=== PATIENT | male | born 1960 | race Caucasian/White ===

== ENCOUNTER 2017-04-14 15:03 | Inpatient (IN) | payer SELFPAY ==
[~2017-04-14] VITALS: Ht 182.9 cm; Wt 96.6 kg
[2017-04-14 16:00] LABS: BASOPHILS # (AUTO) 0.1 (0.0-0.1); BASOPHILS % 0.8 % (0.0-1.0); EOSINOPHILS # (AUTO) 0.1 (0.0-0.4); EOSINOPHILS % 1.5 % (0.0-6.0); HEMATOCRIT 40.6 % (38.2-49.6); LYMPHOCYTES # (AUTO) 1.5 (1.0-3.2); MEAN CORPUSCULAR HEMOGLOBIN 30.8 pg (28-32); MEAN CORPUSCULAR HGB CONC 34.5 g/dL (31-35); MEAN CORPUSCULAR VOLUME 89.2 fL (81-99); MONOCYTES # (AUTO) 0.8 (0.2-0.8); MONOCYTES % 10.9 % (4.4-11.3); NEUTROPHILS # (AUTO) 4.7 (2.1-6.9); NEUTROPHILS % 65.4 % (38.7-80.0); PLATELET COUNT 115 x10e3/uL (140-360); RED BLOOD COUNT 4.55 x10e6/uL (4.3-5.7); RED CELL DISTRIBUTION WIDTH 13.1 % (11.7-14.4)
[2017-04-14 16:10] LABS: INR 1.43; PROTHROMBIN TIME 16.4 seconds (11.9-14.5)
[2017-04-14 16:11] LABS: PARTIAL THROMBOPLASTIN TIME 29.9 seconds (23.8-35.5)
[2017-04-14 16:18] LABS: ALANINE AMINOTRANSFERASE 43 IU/L (0-55); ALBUMIN 3.3 g/dL (3.5-5.0); ALBUMIN/GLOBULIN RATIO 1.4 (0.8-2.0); ALKALINE PHOSPHATASE 58 IU/L (40-150); ANION GAP 10.8 mmol/L (8-16); BLOOD UREA NITROGEN 17 mg/dL (7-26); BUN/CREATININE RATIO 15 (6-25); CALCIUM 8.2 mg/dL (8.4-10.2); CARBON DIOXIDE 20 mmol/L (22-29); CHLORIDE 110 mmol/L (98-107); CREATINE KINASE 45 IU/L (30-200); CREATININE, SERUM 1.12 mg/dL (0.72-1.25); EST GLOMERULAR FILTRATION RATE > 60 ML/MIN (60-); GLUCOSE 136 mg/dL (74-118); POTASSIUM 3.8 mmol/L (3.5-5.1); SODIUM 137 mmol/L (136-145)
--- NOTE | 2017-04-14 17:45 | Diagnostic Imaging Report ---
EXAMINATION: CHEST SINGLE (PORTABLE) INDICATION: Shortness of breath. COMPARISON: None FINDINGS: TUBES and LINES: None. LUNGS: Mild prominence of the pulmonary vasculature bilaterally. There is no evidence of pneumonia or pulmonary edema. PLEURA: No pleural effusion or pneumothorax. HEART AND MEDIASTINUM: Cardiac silhouette is moderately enlarged. BONES AND SOFT TISSUES: No acute osseous lesion. Soft tissues are unremarkable. UPPER ABDOMEN: No free air under the diaphragm. IMPRESSION: Mild bilateral pulmonary venous congestion. Signed by: Dr. Yue Canales M.D. on 04/14/2017 5:41 PM
[2017-04-14] MEDS ORDERED: FUROSEMIDE INJ 10 MG/ML 4 ML VIAL IV ONE (18:00)
[2017-04-14] MEDS ORDERED: FUROSEMIDE INJ 10 MG/ML 2 ML VIAL IV ONE (18:15)
[2017-04-14] MEDS ORDERED: METOPROLOL TART25 MG PO (18:56)
[2017-04-14] MEDS ORDERED: LOVASTATIN40 MG PO (18:56)
[2017-04-14] MEDS ORDERED: ELIQUIS PO (18:56)
[2017-04-14] MEDS ORDERED: CENTRUM SILVER1 EAC3 PO (18:56)
[2017-04-14] MEDS ORDERED: DIGOXIN INJ 0.25 MG/ML 2 ML AMP IV ONE (19:15)
[2017-04-14 21:58] VITALS: BP 106/92
[2017-04-14 22:00] VITALS: BP 106/92
[2017-04-14] MEDS ORDERED: INFLUENZA VIRUS VAC SPLIT INJ 0.5 ML SYR IM PRN (23:00)
[2017-04-14] MEDS ORDERED: ASPIR 8181 MG PO (23:11)
[2017-04-14 23:36] VITALS: BP 102/80
[2017-04-15 02:45] LABS: CREATINE KINASE MB 1.3 ng/mL (0-5.0)
[2017-04-15 04:50] VITALS: BP 102/84
[2017-04-15 07:50] VITALS: BP 109/95
[2017-04-15 08:00] VITALS: BP 109/95
[2017-04-15] MEDS ORDERED: FUROSEMIDE INJ 10 MG/ML 4 ML VIAL IV SCH (09:00)
[2017-04-15] MEDS: METOPROLOL TARTRATE 25 MG TAB PO SCH (09:00)
[2017-04-15] MEDS: FUROSEMIDE INJ 10 MG/ML 2 ML VIAL IV SCH ×2 (09:00→17:00)
[2017-04-15] MEDS ORDERED: POTASSIUM CHLORIDE 10 MEQ TABCR PO SCH (09:15)
[2017-04-15 10:53] LABS: CREATINE KINASE MB 1.4 ng/mL (0-5.0)
[2017-04-15 12:00] VITALS: BP 110/95
[2017-04-15] MEDS ORDERED: DIGOXIN INJ 0.25 MG/ML 2 ML AMP IV ONE (15:10)
--- NOTE | 2017-04-15 15:11 | Consultation ---
DATE OF CONSULTATION: April 15, 2017 CARDIOLOGY CONSULTATION ADMITTING PHYSICIAN: Dr. Terry Dunbar. Thank you for this consultation. I have seen him in the office one time. Patient is a patient of Dr. Yun, primary physician. DIAGNOSES 1. Nonischemic cardiomyopathy. 2. New onset of atrial fibrillation. Mr. Braeden Crain, a pleasant 57-year-old gentleman, came with some shortness of breath. I have seen in my office last week ago. At that time he was found to have atrial fibrillation and mild heart failure. At this time he comes here with increasing shortness of breath. He works as an automotive glazier. He is , with grown-up children. He had these symptoms for the last on-and-off one year but had not seen a physician or taken any medicine. He does not smoke, does not abuse alcohol. No surgeries. NO ALLERGIES. His home medication included aspirin, metoprolol, Lasix, Eliquis and lisinopril. At this time patient already given IV Lasix, and patient is feeling better. Chest x-ray show no enlargement of the heart. Patient has got mild congestion of the lungs. PHYSICAL EXAMINATION HEART: Normal. Short systolic murmur that changes to mitral regurgitation. LUNGS: A few rales, rhonchi present. EXTREMITIES: Patient has no pedal edema. VITAL SIGNS: Blood pressure 100/70. Echocardiogram showed ejection fraction less than 20% with mild to moderate mitral regurgitation noted, normal pulmonary artery pressure. Electrolytes are normal. Troponin is normal. At this time we are going to add spironolactone 25 mg once a day, lisinopril 5 mg once a day, and also to continue metoprolol 25 mg p.o. b.i.d. I am going to add Lanoxin 0.125 mg once a day, Lasix 40 mg once a day. The patient is comfortable. He can go home in the morning. The following medication needs to be given. Discharge home medication will be 1. Aspirin 81 mg once a day. 2. Eliquis 5 mg p.o. b.i.d. 3. Lasix 40 mg. 4. Lanoxin 0.125 mg. 5. Spironolactone 25 mg. 6. Lisinopril 5 mg. 7. Metoprolol tartrate 25 mg p.o. b.i.d. 8. Potassium KCl 10 mEq once a day. I will check his potassium as an outpatient, maybe in one week. Two weeks later maybe I will stop it if potassium is very high. At this time patient is in stable condition. I discussed his cardiac condition. Patient needs to have further cardiac evaluation done. He said he will come back and have it done or will go to [facility]. He needs to have coronary angiogram, further evaluation, possibly be referred to heart failure specialist. However, patient is improved very much. Thank you again for this consultation. Job#: [id number] EV
[2017-04-15 16:00] VITALS: BP 108/90
[2017-04-15] MEDS ORDERED: NON-FORMULARY MEDICATION ([Eliquis] 5 MG) PO SCH (17:00)
[2017-04-15] MEDS: APIXABAN 5 MG TABLET PO SCH (17:00)
[2017-04-15 20:00] VITALS: BP 94/52
[2017-04-15] MEDS ORDERED: SIMVASTATIN 20 MG TAB PO SCH (21:00)
[2017-04-15] MEDS: SIMVASTATIN 40 MG TAB PO SCH (21:45)
[2017-04-16] VITALS (7 sets, daily range): BP systolic 94–114; BP diastolic 52–98
[2017-04-16 06:46] LABS: ANION GAP 14.4 mmol/L (8-16); CALCIUM 9.3 mg/dL (8.4-10.2); CREATININE, SERUM 1.29 mg/dL (0.72-1.25); POTASSIUM 5.4 mmol/L (3.5-5.1)
[2017-04-16] MEDS: APIXABAN 5 MG TABLET PO SCH ×2 (09:00→17:00)
[2017-04-16] MEDS ORDERED: LISINOPRIL 10 MG TAB PO SCH (09:00)
[2017-04-16] MEDS: FUROSEMIDE 40 MG TAB PO SCH (09:00)
[2017-04-16] MEDS ORDERED: SPIRONOLACTONE 25 MG TAB PO SCH (09:00)
[2017-04-16] MEDS: DIGOXIN 0.125 MG TAB PO SCH (09:00)
[2017-04-16] MEDS: METOPROLOL TARTRATE 25 MG TAB PO SCH (09:00)
[2017-04-16] MEDS: SIMVASTATIN 40 MG TAB PO SCH (22:06)
[2017-04-16] MEDS ORDERED: ACETAMINOPHEN 325 MG TAB PO PRN (22:30)
[2017-04-17] VITALS: BP 103/79
[2017-04-17 04:00] VITALS: BP 94/75
[2017-04-17 06:27] LABS: BASOPHILS # (AUTO) 0.1 (0.0-0.1); BASOPHILS % 0.9 % (0.0-1.0); EOSINOPHILS # (AUTO) 0.2 (0.0-0.4); EOSINOPHILS % 2.5 % (0.0-6.0); HEMOGLOBIN 15.1 g/dL (14.0-18.0); LYMPHOCYTES # (AUTO) 1.4 (1.0-3.2); LYMPHOCYTES % 14.9 % (18.0-39.1); MEAN CORPUSCULAR HEMOGLOBIN 30.4 pg (28-32); MEAN CORPUSCULAR HGB CONC 34.3 g/dL (31-35); MEAN CORPUSCULAR VOLUME 88.7 fL (81-99); MONOCYTES % 10.9 % (4.4-11.3); NEUTROPHILS # (AUTO) 6.5 (2.1-6.9); NEUTROPHILS % 70.5 % (38.7-80.0); PLATELET COUNT 133 x10e3/uL (140-360); RED BLOOD COUNT 4.96 x10e6/uL (4.3-5.7); RED CELL DISTRIBUTION WIDTH 12.9 % (11.7-14.4)
[2017-04-17 06:46] LABS: ANION GAP 12.2 mmol/L (8-16); BLOOD UREA NITROGEN 19 mg/dL (7-26); BUN/CREATININE RATIO 18 (6-25); CALCIUM 8.9 mg/dL (8.4-10.2); CARBON DIOXIDE 25 mmol/L (22-29); CHLORIDE 106 mmol/L (98-107); CREATININE, SERUM 1.06 mg/dL (0.72-1.25); EST GLOMERULAR FILTRATION RATE > 60 ML/MIN (60-); GLUCOSE 95 mg/dL (74-118); POTASSIUM 4.2 mmol/L (3.5-5.1); SODIUM 139 mmol/L (136-145)
[2017-04-17 07:00] VITALS: BP 101/83
[2017-04-17] MEDS: APIXABAN 5 MG TABLET PO SCH (08:23)
[2017-04-17] MEDS: FUROSEMIDE 40 MG TAB PO SCH (08:24)
[2017-04-17] MEDS: DIGOXIN 0.125 MG TAB PO SCH (08:31)
[2017-04-17 09:12] VITALS: BP 101/83
--- NOTE | 2017-04-17 09:55 | Discharge Summary ---
PRIMARY CARE PHYSICIAN: Sonny Yun MD CIRCULAR KNITTER HELPER: Dr. Yeager FINAL DIAGNOSES 1. Atrial fibrillation with rapid ventricular rate response diagnosed as outpatient, rate controlled inpatient. 2. Congestive heart failure with ejection fraction of 20%. SUMMARY: This 57-year-old male was diagnosed outpatient and placed inpatient for adjustment of medication. The patient is aware of his condition. The patient was seen by Dr. Yeager as an outpatient. The patient has been cleared by Dr. Yeager for discharge home. The patient will go to [facility] for his cardiac management. The patient will need cardiac catheterization. Currently, the patient is stable. He will go home to resume his home medications including aspirin, lovastatin, metoprolol tartrate, multivitamin and Eliquis. New prescriptions are Lasix 40 mg q.a.m., digoxin 0.125 mg daily, lisinopril 2.5 mg daily and potassium 8 mEq daily. Suggest the patient continue with his fluid restriction. He needs follow with Dr. Yeager closely and his family physician Dr. Yun for adjustment of medication, repeated lab work, potassium correction and check renal function. Patient is stable for discharge home today. Job#: [id number]
== END 2017-04-17 10:02 | disposition home or self-care (01) | DRG 308 ==
LOC: ER 15:03 → ERHOLD 18:23 → IMCU 21:51
PROVIDERS: ADMIT Internal Medicine; ATTEND Internal Medicine
DX: I48.91 Unspecified atrial fibrillation (principal); I50.21 Acute systolic (congestive) heart failure; I11.0 Hypertensive heart disease with heart failure; I34.0 Nonrheumatic mitral (valve) insufficiency; Z79.82 Long term (current) use of aspirin; Z79.01 Long term (current) use of anticoagulants
CPT/HCPCS: 36415; 71045; 80048; 80053; 82550; 82553; 83880; 84132; 84443; 84484; 85025; 85379; 85610; 85730; 93005; 93306; 96374; 96375; 96376; 99284; J1160; J1940

== ENCOUNTER → 2018-05-20 | Day surgery (SDC) | payer OTHER ==
[2018-05-19 09:11] LABS: BASOPHILS # (AUTO) 0.1 (0.0-0.1); BASOPHILS % 1.2 % (0.0-1.0); EOSINOPHILS # (AUTO) 0.1 (0.0-0.4); EOSINOPHILS % 1.8 % (0.0-6.0); HEMATOCRIT 46.3 % (38.2-49.6); HEMOGLOBIN 15.9 g/dL (14.0-18.0); LYMPHOCYTES # (AUTO) 2.3 (1.0-3.2); LYMPHOCYTES % 29.5 % (18.0-39.1); MEAN CORPUSCULAR HEMOGLOBIN 30.9 pg (28-32); MEAN CORPUSCULAR HGB CONC 34.3 g/dL (31-35); MEAN CORPUSCULAR VOLUME 90.1 fL (81-99); MONOCYTES # (AUTO) 0.8 (0.2-0.8); MONOCYTES % 10.7 % (4.4-11.3); NEUTROPHILS # (AUTO) 4.3 (2.1-6.9); NEUTROPHILS % 56.3 % (38.7-80.0); PLATELET COUNT 154 x10e3/uL (140-360); RED BLOOD COUNT 5.14 x10e6/uL (4.3-5.7); RED CELL DISTRIBUTION WIDTH 12.8 % (11.7-14.4)
[~2018-05-20] MED LIST: ASPIR 8181 MG PO; CENTRUM SILVER1 EAC3 PO; DIGOXIN125 MCG PO; ELIQUIS PO; ETOMIDATE 2 MG/ML 10 ML INJ IV ONE; FISH OIL 1,0001 EAC2 PO; FUROSEMIDE40 MG PO; LISINOPRIL2.5 MG PO; LOVASTATIN40 MG PO; METOPROLOL TART25 MG PO; MIDAZOLAM HCL 2 MG/2 ML VIAL ONE; NITROGLYCERIN0.4 MG SL; PROPOFOL IV EMULSION 10 MG/ML 50 ML VIAL ONE; VITAMIN C250 MG PO
--- OUTSIDE RECORDS SUMMARY | 2018-05-20 08:05 | XMS REPORT ---
Author Author [facility] Address Unknown Phone Unavailable Care Team Providers Care Manager [employer] Name Role Phone Vanna TOLBERT Unavailable Unavailable Payers Payer Name Policy Type Policy Number Effective Date Expiration Date Problems This patient has no known problems. Allergies, Adverse Reactions, Alerts Allergy Name Allergy Type Status Severity Reaction(s) Onset Date Inactive Date Treating Clinician Comments No Known Allergies DA Active U 2018-04-18 00:00:00 Medications This patient has no known medications. Results Test Description Test Time Test Comments Text Results Atomic Results Result Comments CBC W/AUTO DIFF 2018-04-18 13:26:00 WHITE BLOOD CELL (test code=WBC) 8.8 K/mm3 4.5-12.5 RED BLOOD CELL (test code=RBC) 5.40 mill/mm3 4.0-5.8 HEMOGLOBIN (test code=HGB) 16.5 gram/dL 13.0-17.5 HEMATOCRIT (test code=HCT) 48.5 % 42.0-52.0 MEAN CELL VOLUME (test code=MCV) 89.8 fL 80-98 MEAN CELL HGB (test code=MCH) 30.6 picogram 27.0-33.0 MEAN CELL HGB CONCETRATION (test code=MCHC) 34.0 gram/dL 33.0-36.0 RED CELL DISTRIBUTION WIDTH (test code=RDW) 12.9 % 11.6-16.2 RED CELL DISTRIBUTION WIDTH SD (test code=RDW-SD) 42.1 fL 37.0-51.0 PLATELET COUNT (test code=PLT) 148 K/mm3 150-450 MEAN PLATELET VOLUME (test code=MPV) 11.3 fL 6.7-11.0 NEUTROPHIL % (test code=NT%) 53.0 % 39.0-69.0 IMMATURE GRANULOCYTE % (test code=IG%) 0.5 % 0.0-5.0 LYMPHOCYTE % (test code=LY%) 33.4 % 25.0-55.0 MONOCYTE % (test code=MO%) 9.9 % 0.0-10.0 EOSINOPHIL % (test code=EO%) 1.8 % 0.0-5.0 BASOPHIL % (test code=BA%) 1.4 % 0.0-1.0 NUCLEATED RBC % (test code=NRBC%) 0.0 % 0-0 NEUTROPHIL # (test code=NT#) 4.68 K/mm3 1.8-7.7 IMMATURE GRANULOCYTE # (test code=IG#) 0.04 x10 3/uL 0-0.03 LYMPHOCYTE # (test code=LY#) 2.94 K/mm3 1.0-5.0 MONOCYTE # (test code=MO#) 0.87 K/mm3 0-0.8 EOSINOPHIL # (test code=EO#) 0.16 K/mm3 0.0-0.5 BASOPHIL # (test code=BA#) 0.12 K/mm3 0.0-0.2 NUCLEATED RBC # (test code=NRBC#) 0.00 K/mm3 0.0-0.1 MANUAL DIFF REQUIRED (test code=MDIFF) NO, ONLY SCAN NEEDED DIFFERENTIAL [id number] 13:26:00* Test Item Value Reference Range Comments STAIN ACCEPTABILITY (test code=STN ACCEPTABLE) STAIN ACCEPTABLE POIKILOCYTOSIS (test code=POIK) 1+ PLATELET ESTIMATE (test code=PLTEST) DECREASED PLATELET MORPHOLOGY (test code=PLTMORPH) PLATELET SATELLISM COMPREHENSIVE METABOLIC [id number] 12:25:00* Test Item Value Reference Range Comments SODIUM (test code=NA) 139 mmol/L 136-145 POTASSIUM (test code=K) 4.2 mmol/L 3.5-5.1 CHLORIDE (test code=CL) 104.0 mmol/L 98-107 CARBON DIOXIDE (test code=CO2) 25.0 mmol/L 21-32 ANION GAP (test code=GAP) 14.2 10-20 GLUCOSE (test code=GLU) 96 mg/dL 74-106 BLOOD UREA NITROGEN (test code=BUN) 13 mg/dL 7-18 GLOMERULAR FILTRATION RATE (test code=GFR) > 60 mL/min >=60 Estimated GFR by using Modified MDRD formula.Chronic kidney disease is defined as either kidney damageor GFR <60 mL/min/1.73 m2 for >3 months. CREATININE (test code=CREAT) 1.20 mg/dL 0.7-1.3 BUN/CREATININE RATIO (test code=BUN/CREA) 10.5 10-20 TOTAL PROTEIN (test code=PROT) 7.4 gram/dL 6.4-8.2 ALBUMIN (test code=ALB) 4.2 g/dL 3.4-5.0 GLOBULIN (test code=GLOB) 3.2 gram/dL 2.7-4.2 ALBUMIN/GLOBULIN RATIO (test code=A/G) 1.3 0.75-1.50 CALCIUM (test code=CA) 9.3 mg/dL 8.5-10.1 BILIRUBIN TOTAL (test code=BILT) 0.80 mg/dL 0.0-1.0 SGOT/AST (test code=AST) 35 IUnit/L 15-37 SGPT/ALT (test code=ALT) 61 IUnit/L 12-78 ALKALINE PHOSPHATASE TOTAL (test code=ALKP) 55 IUnit/L 45-117 Note change in reference range due to change in reagent. CBC W/AUTO [id number] 12:11:00* Test Item Value Reference Range Comments WHITE BLOOD CELL (test code=WBC) 8.8 K/mm3 4.5-12.5 RED BLOOD CELL (test code=RBC) 5.40 mill/mm3 4.0-5.8 HEMOGLOBIN (test code=HGB) 16.5 gram/dL 13.0-17.5 HEMATOCRIT (test code=HCT) 48.5 % 42.0-52.0 MEAN CELL VOLUME (test code=MCV) 89.8 fL 80-98 MEAN CELL HGB (test code=MCH) 30.6 picogram 27.0-33.0 MEAN CELL HGB CONCETRATION (test code=MCHC) 34.0 gram/dL 33.0-36.0 RED CELL DISTRIBUTION WIDTH (test code=RDW) 12.9 % 11.6-16.2 RED CELL DISTRIBUTION WIDTH SD (test code=RDW-SD) 42.1 fL 37.0-51.0 PLATELET COUNT (test code=PLT) 148 K/mm3 150-450 MEAN PLATELET VOLUME (test code=MPV) 11.3 fL 6.7-11.0 NEUTROPHIL % (test code=NT%) 53.0 % 39.0-69.0 IMMATURE GRANULOCYTE % (test code=IG%) 0.5 % 0.0-5.0 LYMPHOCYTE % (test code=LY%) 33.4 % 25.0-55.0 MONOCYTE % (test code=MO%) 9.9 % 0.0-10.0 EOSINOPHIL % (test code=EO%) 1.8 % 0.0-5.0 BASOPHIL % (test code=BA%) 1.4 % 0.0-1.0 NUCLEATED RBC % (test code=NRBC%) 0.0 % 0-0 NEUTROPHIL # (test code=NT#) 4.68 K/mm3 1.8-7.7 IMMATURE GRANULOCYTE # (test code=IG#) 0.04 x10 3/uL 0-0.03 LYMPHOCYTE # (test code=LY#) 2.94 K/mm3 1.0-5.0 MONOCYTE # (test code=MO#) 0.87 K/mm3 0-0.8 EOSINOPHIL # (test code=EO#) 0.16 K/mm3 0.0-0.5 BASOPHIL # (test code=BA#) 0.12 K/mm3 0.0-0.2 NUCLEATED RBC # (test code=NRBC#) 0.00 K/mm3 0.0-0.1 MANUAL DIFF REQUIRED (test code=MDIFF) NO, ONLY SCAN NEEDED DIFFERENTIAL [id number] 12:11:00* Test Item Value Reference Range Comments STAIN ACCEPTABILITY (test code=STN ACCEPTABLE) CABOT RINGS (test code=CAB) MORPHOLOGY COMMENT (test code=MOC) PLATELET ESTIMATE (test code=PLTEST) PLATELET MORPHOLOGY (test code=PLTMORPH) CBC W/AUTO [id number] 12:11:00* Test Item Value Reference Range Comments WHITE BLOOD CELL (test code=WBC) 8.8 K/mm3 4.5-12.5 RED BLOOD CELL (test code=RBC) 5.40 mill/mm3 4.0-5.8 HEMOGLOBIN (test code=HGB) 16.5 gram/dL 13.0-17.5 HEMATOCRIT (test code=HCT) 48.5 % 42.0-52.0 MEAN CELL VOLUME (test code=MCV) 89.8 fL 80-98 MEAN CELL HGB (test code=MCH) 30.6 picogram 27.0-33.0 MEAN CELL HGB CONCETRATION (test code=MCHC) 34.0 gram/dL 33.0-36.0 RED CELL DISTRIBUTION WIDTH (test code=RDW) 12.9 % 11.6-16.2 RED CELL DISTRIBUTION WIDTH SD (test code=RDW-SD) 42.1 fL 37.0-51.0 PLATELET COUNT (test code=PLT) 148 K/mm3 150-450 MEAN PLATELET VOLUME (test code=MPV) 11.3 fL 6.7-11.0 NEUTROPHIL % (test code=NT%) 53.0 % 39.0-69.0 IMMATURE GRANULOCYTE % (test code=IG%) 0.5 % 0.0-5.0 LYMPHOCYTE % (test code=LY%) 33.4 % 25.0-55.0 MONOCYTE % (test code=MO%) 9.9 % 0.0-10.0 EOSINOPHIL % (test code=EO%) 1.8 % 0.0-5.0 BASOPHIL % (test code=BA%) 1.4 % 0.0-1.0 NUCLEATED RBC % (test code=NRBC%) 0.0 % 0-0 NEUTROPHIL # (test code=NT#) 4.68 K/mm3 1.8-7.7 IMMATURE GRANULOCYTE # (test code=IG#) 0.04 x10 3/uL 0-0.03 LYMPHOCYTE # (test code=LY#) 2.94 K/mm3 1.0-5.0 MONOCYTE # (test code=MO#) 0.87 K/mm3 0-0.8 EOSINOPHIL # (test code=EO#) 0.16 K/mm3 0.0-0.5 BASOPHIL # (test code=BA#) 0.12 K/mm3 0.0-0.2 NUCLEATED RBC # (test code=NRBC#) 0.00 K/mm3 0.0-0.1 MANUAL DIFF REQUIRED (test code=MDIFF) NO, ONLY SCAN NEEDED DIFFERENTIAL [id number] 12:11:00* Test Item Value Reference Range Comments STAIN ACCEPTABILITY (test code=STN ACCEPTABLE) CABOT RINGS (test code=CAB) MORPHOLOGY COMMENT (test code=MOC) PLATELET ESTIMATE (test code=PLTEST) PLATELET MORPHOLOGY (test code=PLTMORPH) CBC W/AUTO [id number] 12:11:00* Test Item Value Reference Range Comments WHITE BLOOD CELL (test code=WBC) 8.8 K/mm3 4.5-12.5 RED BLOOD CELL (test code=RBC) 5.40 mill/mm3 4.0-5.8 HEMOGLOBIN (test code=HGB) 16.5 gram/dL 13.0-17.5 HEMATOCRIT (test code=HCT) 48.5 % 42.0-52.0 MEAN CELL VOLUME (test code=MCV) 89.8 fL 80-98 MEAN CELL HGB (test code=MCH) 30.6 picogram 27.0-33.0 MEAN CELL HGB CONCETRATION (test code=MCHC) 34.0 gram/dL 33.0-36.0 RED CELL DISTRIBUTION WIDTH (test code=RDW) 12.9 % 11.6-16.2 RED CELL DISTRIBUTION WIDTH SD (test code=RDW-SD) 42.1 fL 37.0-51.0 PLATELET COUNT (test code=PLT) 148 K/mm3 150-450 MEAN PLATELET VOLUME (test code=MPV) 11.3 fL 6.7-11.0 NEUTROPHIL % (test code=NT%) 53.0 % 39.0-69.0 IMMATURE GRANULOCYTE % (test code=IG%) 0.5 % 0.0-5.0 LYMPHOCYTE % (test code=LY%) 33.4 % 25.0-55.0 MONOCYTE % (test code=MO%) 9.9 % 0.0-10.0 EOSINOPHIL % (test code=EO%) 1.8 % 0.0-5.0 BASOPHIL % (test code=BA%) 1.4 % 0.0-1.0 NUCLEATED RBC % (test code=NRBC%) 0.0 % 0-0 NEUTROPHIL # (test code=NT#) 4.68 K/mm3 1.8-7.7 IMMATURE GRANULOCYTE # (test code=IG#) 0.04 x10 3/uL 0-0.03 LYMPHOCYTE # (test code=LY#) 2.94 K/mm3 1.0-5.0 MONOCYTE # (test code=MO#) 0.87 K/mm3 0-0.8 EOSINOPHIL # (test code=EO#) 0.16 K/mm3 0.0-0.5 BASOPHIL # (test code=BA#) 0.12 K/mm3 0.0-0.2 NUCLEATED RBC # (test code=NRBC#) 0.00 K/mm3 0.0-0.1 MANUAL DIFF REQUIRED (test code=MDIFF) NO, ONLY SCAN NEEDED DIFFERENTIAL [id number] 12:11:00* Test Item Value Reference Range Comments STAIN ACCEPTABILITY (test code=STN ACCEPTABLE) MORPHOLOGY COMMENT (test code=MOC) PLATELET ESTIMATE (test code=PLTEST) PLATELET MORPHOLOGY (test code=PLTMORPH) CBC W/AUTO [id number] 12:11:00* Test Item Value Reference Range Comments WHITE BLOOD CELL (test code=WBC) 8.8 K/mm3 4.5-12.5 RED BLOOD CELL (test code=RBC) 5.40 mill/mm3 4.0-5.8 HEMOGLOBIN (test code=HGB) 16.5 gram/dL 13.0-17.5 HEMATOCRIT (test code=HCT) 48.5 % 42.0-52.0 MEAN CELL VOLUME (test code=MCV) 89.8 fL 80-98 MEAN CELL HGB (test code=MCH) 30.6 picogram 27.0-33.0 MEAN CELL HGB CONCETRATION (test code=MCHC) 34.0 gram/dL 33.0-36.0 RED CELL DISTRIBUTION WIDTH (test code=RDW) 12.9 % 11.6-16.2 RED CELL DISTRIBUTION WIDTH SD (test code=RDW-SD) 42.1 fL 37.0-51.0 PLATELET COUNT (test code=PLT) 148 K/mm3 150-450 MEAN PLATELET VOLUME (test code=MPV) 11.3 fL 6.7-11.0 NEUTROPHIL % (test code=NT%) 53.0 % 39.0-69.0 IMMATURE GRANULOCYTE % (test code=IG%) 0.5 % 0.0-5.0 LYMPHOCYTE % (test code=LY%) 33.4 % 25.0-55.0 MONOCYTE % (test code=MO%) 9.9 % 0.0-10.0 EOSINOPHIL % (test code=EO%) 1.8 % 0.0-5.0 BASOPHIL % (test code=BA%) 1.4 % 0.0-1.0 NUCLEATED RBC % (test code=NRBC%) 0.0 % 0-0 NEUTROPHIL # (test code=NT#) 4.68 K/mm3 1.8-7.7 IMMATURE GRANULOCYTE # (test code=IG#) 0.04 x10 3/uL 0-0.03 LYMPHOCYTE # (test code=LY#) 2.94 K/mm3 1.0-5.0 MONOCYTE # (test code=MO#) 0.87 K/mm3 0-0.8 EOSINOPHIL # (test code=EO#) 0.16 K/mm3 0.0-0.5 BASOPHIL # (test code=BA#) 0.12 K/mm3 0.0-0.2 NUCLEATED RBC # (test code=NRBC#) 0.00 K/mm3 0.0-0.1 MANUAL DIFF REQUIRED (test code=MDIFF) NO, ONLY SCAN NEEDED DIFFERENTIAL [id number] 12:11:00* Test Item Value Reference Range Comments STAIN ACCEPTABILITY (test code=STN ACCEPTABLE) CABOT RINGS (test code=CAB) MORPHOLOGY COMMENT (test code=MOC) PLATELET ESTIMATE (test code=PLTEST) PLATELET MORPHOLOGY (test code=PLTMORPH) - XR CHEST 2 [id number] 11:51:00 FAX: Cooper Macedo MD [phone] [place]: O St: PRE FAX: Devin Ward [phone] Name: CARLOS RUTLEDGE [facility] : 1960 Age/S: 58/M [address] [facility] Unit #: [id number] Loc: [place] [address] Phys: Devin Rowan MD Acct: [id number] Dis Date: Status: PRE SDC PHONE #: [phone] Exam Date: 04/18/2018 1127 FAX #: [phone] Reason: PRE OP EXAMS: CPT CODE: [id number] XR CHEST 2 V 93848 HISTORY: Preop. COMPARISON: None available. AP and lateral view of the chest: No acute infiltrates, effusion or congestion. Cardiac and the mediastinal silhouette are normal. IMPRESSION: No acute infiltrates, effusion or congestion. at 1151 Reported and signed by: Moncho Kaye M.D. CC: Cooper Macedo MD; Dvein Rowan MD Technologist: Hector ARGUETA(R) Trnscrd Date/Time/By: 04/18/2018 (0002) : By: [email or web address] Orig Print D/T: S: 04/18/2018 (3134) PAGE 1 Signed Report CBC W/AUTO [id number] 11:44:00* Test Item Value Reference Range Comments WHITE BLOOD CELL (test code=WBC) K/mm3 4.5-12.5 RED BLOOD CELL (test code=RBC) mill/mm3 4.0-5.8 HEMOGLOBIN (test code=HGB) 16.5 gram/dL 13.0-17.5 HEMATOCRIT (test code=HCT) 48.5 % 42.0-52.0 MEAN CELL VOLUME (test code=MCV) fL 80-98 MEAN CELL HGB (test code=MCH) picogram 27.0-33.0 MEAN CELL HGB CONCETRATION (test code=MCHC) gram/dL 33.0-36.0 RED CELL DISTRIBUTION WIDTH (test code=RDW) % 11.6-16.2 RED CELL DISTRIBUTION WIDTH SD (test code=RDW-SD) fL 37.0-51.0 PLATELET COUNT (test code=PLT) K/mm3 150-450 MEAN PLATELET VOLUME (test code=MPV) fL 6.7-11.0 NEUTROPHIL % (test code=NT%) % 39.0-69.0 IMMATURE GRANULOCYTE % (test code=IG%) % 0.0-5.0 LYMPHOCYTE % (test code=LY%) % 25.0-55.0 MONOCYTE % (test code=MO%) % 0.0-10.0 EOSINOPHIL % (test code=EO%) % 0.0-5.0 BASOPHIL % (test code=BA%) % 0.0-1.0 NEUTROPHIL # (test code=NT#) K/mm3 1.8-7.7 LYMPHOCYTE # (test code=LY#) K/mm3 1.0-5.0 MONOCYTE # (test code=MO#) K/mm3 0-0.8 EOSINOPHIL # (test code=EO#) K/mm3 0.0-0.5 BASOPHIL # (test code=BA#) K/mm3 0.0-0.2 CHEST SINGLE (PORTABLE) [place] [address] Patient Name: CARLOS RUTLEDGE MR #: [id number] : 1960 Age/Sex: 57/M Req #: [id number] Adm Physician: Ordered by: GEETA TOLBERT MD Report #: [id number] Location: ER Room/Bed: Procedure: [id number] DX/CHEST SINGLE (PORTABLE) Exam Date: 04/14/17 Exam Time: 1725 REPORT STAT US: Signed EXAMINATION: CHEST SINGLE (PORTABLE) INDICATION: Shortne ss of breath. COMPARISON: None FINDINGS: TUBES and LINES: Non e. LUNGS: Mild prominence of the pulmonary vasculature bilaterally. There is no evidence of pneumonia or pulmonary edema. PLEURA: No pleural effu alyson or pneumothorax. HEART AND MEDIASTINUM: Cardiac silhouette is moder ately enlarged. BONES AND SOFT TISSUES: No acute osseous lesion. Soft ti ssues are unremarkable. UPPER ABDOMEN: No free air under the diaphragm. IMPRESSION: Mild bilateral pulmonary venous congestion. Signed by: Dr. Yue Blood M.D. on 04/14/2017 5:41 PM Dictated By: SHANNON BLOOD MD, MD 40 Transcribed By: ARAMIS on 04/14/171740 COPY TO: GEETA TOLBERT MD
--- OUTSIDE RECORDS SUMMARY | 2018-05-20 08:05 | XMS REPORT ---
Author Author Admin, [place] [facility] Address [address] [address] Phone Allergies, Adverse Reactions, Alerts Allergy Name Reaction Description Start Date Severity Status Provider ZANTAC Moderate Active Cooper Macedo MD Conditions or Problems Problem Name Problem Code Onset Date Status Entry Date Provider Comment Standard Description Annotate Angina pectoris 413.9 Active Cooper Macedo MD Other and unspecified angina pectoris Annual exam V70.0 Active Cooper Macedo MD Routine general medical examination at a health care facility Colon Cancer Screening V76.51 Active Cooper Macedo MD Screening for malignant neoplasms of colon Hypercholesterolemia 272.0 Active Cooper Macedo MD Pure hypercholesterolemia Hypertension 401.1 Active Cooper Macedo MD Benign essential hypertension Vaccination Against Influenza V04.81 Active Cooper Macedo MD Need for prophylactic vaccination and inoculation against influenza Medication List Medication Instructions Start Date Stop Date Generic Name NDC Status Provider Patient Instruction NITROGLYCERIN 0.4 [address] SU[address]T SUBLINGUAL [address] one tab under tongue at first sign of chest pain; repeat 15 min later if needed NITROGLYCERIN 05611245358 Active Cooper Macedo MD Active LISINOPRIL 5 MG ORAL TABLET 1 by mouth every day LISINOPRIL 51380950033 Active Cooper Macedo MD Active LOVASTATIN 40 MG ORAL TABLET 1 by mouth every night LOVASTATIN 77347789841 Active Cooper Macedo MD Active METOPROLOL TARTRATE 75 MG ORAL TABLET take one tab By Mouth Twice a Day METOPROLOL TARTRATE 62783195988 Active Cooper Macedo MD Active Immunizations Vaccine Administration Date Value Standard Description influenza immunization (Flu Vax) has been administered given influenza virus vaccine, unspecified formulation Vital Signs Date Name Value Unit Range Description blood pressure, diastolic 87 mm[Hg] BP ortiz blood pressure, systolic 128 mm[Hg] BP sys height E&M 72 [in_us] Bdy height pulse rate E&M 67 /min Heart rate respiratory rate E&M 18 /min Resp rate temperature E&M 98.0 [degF] Body temperature weight E&M 223.38 [lb_av] Weight Measured blood pressure, diastolic, second observation 84 mm[Hg] BP ortiz blood pressure, diastolic 82 mm[Hg] BP ortiz blood pressure, systolic, second observation 110 mm[Hg] BP sys blood pressure, systolic 152 mm[Hg] BP sys height E&M 72 [in_us] Bdy height pulse rate E&M 79 /min Heart rate respiratory rate E&M 18 /min Resp rate temperature E&M 97.6 [degF] Body temperature weight E&M 225.13 [lb_av] Weight Measured Diagnostic Results Date Name Value Unit Range Description Lab Report: CBC With Differential/Platelet, Comp. Metabolic Panel (14), ... - Chemistry very low density lipoproteins 49 mg/dL 5-40 chloride, serum 104 mmol/L 96-106 urea nitrogen, blood 16 mg/dL 6-24 Lab Report: CBC With Differential/Platelet, Comp. Metabolic Panel (14), ... - Urinalysis leukocyte esterase, urine, by dipstick Negative Negative Lab Report: CBC With Differential/Platelet, Comp. Metabolic Panel (14), ... - Hematology mean corpuscular hemoglobin concentration, RBC 33.8 G/DL % 31.5-35.7 erythrocyte (RBC) count 5.11 X10E6/UL 10*6/mm3 4.14-5.80 Lab Report: CBC With Differential/Platelet, Comp. Metabolic Panel (14), ... - Urinalysis urine color Yellow Yellow Lab Report: CBC With Differential/Platelet, Comp. Metabolic Panel (14), ... - Chemistry Absolute Neutrophils 5.6 X10E3/UL 10*3/uL 1.4-7.0 Lab Report: CBC With Differential/Platelet, Comp. Metabolic Panel (14), ... - Urinalysis bilirubin, urine Negative Negative Lab Report: CBC With Differential/Platelet, Comp. Metabolic Panel (14), ... - Chemistry LDL cholesterol, serum 64 mg/dL 0-99 urea nitrogen/creatinine ratio, serum 12 9-20 Lab Report: CBC With Differential/Platelet, Comp. Metabolic Panel (14), ... - Hematology mean corpuscular volume, RBC 92 fL 79-97 Lab Report: CBC With Differential/Platelet, Comp. Metabolic Panel (14), ... - Chemistry HDL cholesterol, serum 30 mg/dL >39 Lab Report: CBC With Differential/Platelet, Comp. Metabolic Panel (14), ... - Hematology monocytes as percent of blood leukocytes 9 % Not Estab. Lab Report: CBC With Differential/Platelet, Comp. Metabolic Panel (14), ... - Chemistry creatinine, serum 1.34 mg/dL 0.76-1.27 albumin/globulin ratio, serum 2.2 1.2-2.2 cholesterol, serum 143 mg/dL 467-246 0674/01/31 bilirubin, serum, total 0.9 mg/dL 0.0-1.2 Lab Report: CBC With Differential/Platelet, Comp. Metabolic Panel (14), ... - Hematology Eosinophil Absolute Count 0.2 X10E3/UL 10*3/uL 0.0-0.4 Lab Report: CBC With Differential/Platelet, Comp. Metabolic Panel (14), ... - Urinalysis appearance, urine Clear Clear Lab Report: CBC With Differential/Platelet, Comp. Metabolic Panel (14), ... - Chemistry aspartate aminotransferase (SGOT), serum 30 U/L 0-40 Lab Report: CBC With Differential/Platelet, Comp. Metabolic Panel (14), ... - Hematology red blood cell distribution width 14.0 % 12.3-15.4 Lab Report: CBC With Differential/Platelet, Comp. Metabolic Panel (14), ... - Urinalysis urinalysis, microscopic examination MICNIP Lab Report: CBC With Differential/Platelet, Comp. Metabolic Panel (14), ... - Hematology leukocyte count, blood 9.6 X10E3/UL 10*3/mm3 3.4-10.8 Lab Report: CBC With Differential/Platelet, Comp. Metabolic Panel (14), ... - Urinalysis pH, urine, semiquantitative 5.5 5.0-7.5 Lab Report: CBC With Differential/Platelet, Comp. Metabolic Panel (14), ... - Chemistry potassium, serum 5.4 mmol/L 3.5-5.2 immature granulocytes, percentage of total cells, blood 0 % Not Estab. albumin, serum 4.6 g/dL 3.5-5.5 Lab Report: CBC With Differential/Platelet, Comp. Metabolic Panel (14), ... - Hematology lymphocyte count, blood, automated 2.9 X10E3/UL 10*3/mm3 0.7-3.1 hematocrit, blood 47.1 % 37.5-51.0 Lab Report: CBC With Differential/Platelet, Comp. Metabolic Panel (14), ... - Chemistry sodium, serum 143 mmol/L 134-144 Lab Report: CBC With Differential/Platelet, Comp. Metabolic Panel (14), ... - Hematology neutrophils as percent of blood leukocytes 57 % Not Estab. basophils as percent of blood leukocytes 1 % Not Estab. Lab Report: CBC With Differential/Platelet, Comp. Metabolic Panel (14), ... - Chemistry specific gravity, body fluid 1.016 1.005-1.030 Lab Report: CBC With Differential/Platelet, Comp. Metabolic Panel (14), ... - Urinalysis protein, urine, semiquantitative (dipstick) Negative Negative/Trace Lab Report: CBC With Differential/Platelet, Comp. Metabolic Panel (14), ... - Chemistry carbon dioxide, venous blood 23 mmol/L 20-29 nitrate, urine Negative Negative triglyceride, serum, fasting 244 mg/dL 0-149 calcium, serum 9.8 mg/dL 8.7-10.2 alanine aminotransferase (SGPT), serum 47 U/L 0-44 Lab Report: CBC With Differential/Platelet, Comp. Metabolic Panel (14), ... - Hematology mean corpuscular hemoglobin, RBC 31.1 pg 26.6-33.0 Lab Report: CBC With Differential/Platelet, Comp. Metabolic Panel (14), ... - Chemistry protein, total, serum 6.7 g/dL 6.0-8.5 alkaline phosphatase, serum 57 U/L 39-117 Lab Report: CBC With Differential/Platelet, Comp. Metabolic Panel (14), ... - Hematology hemoglobin, blood 15.9 g/dL 13.0-17.7 lymphocytes as percent of blood leukocytes 31 % Not Estab. Lab Report: CBC With Differential/Platelet, Comp. Metabolic Panel (14), ... - Urinalysis glucose, urine, semiquantitative Negative Negative Lab Report: CBC With Differential/Platelet, Comp. Metabolic Panel (14), ... - Genetics/fertility eGFR if 67 mL/min/1.73m2 >59 Lab Report: CBC With Differential/Platelet, Comp. Metabolic Panel (14), ... - Hematology basophil count, absolute 0.1 x10E3/uL 0.0-0.2 Lab Report: CBC With Differential/Platelet, Comp. Metabolic Panel (14), ... - Chemistry globulin, serum 2.1 1.5-4.5 Estimated Glomerular Filtration Rate (calc) 58 mL/min/1.73m2 >59 Lab Report: CBC With Differential/Platelet, Comp. Metabolic Panel (14), ... - Basic Occult Blood, urine Negative Negative Lab Report: CBC With Differential/Platelet, Comp. Metabolic Panel (14), ... - Hematology eosinophils as percent of blood leukocytes 2 % Not Estab. Lab Report: CBC With Differential/Platelet, Comp. Metabolic Panel (14), ... - Chemistry blood glucose, random 109 mg/dL 65-99 Lab Report: CBC With Differential/Platelet, Comp. Metabolic Panel (14), ... - Urinalysis urobilinogen, urine, semiquantitative (dipstick) 0.2 0.2-1.0 Lab Report: CBC With Differential/Platelet, Comp. Metabolic Panel (14), ... - Hematology monocyte count, blood, automated 0.9 X10E3/UL 10*3/uL 0.1-0.9 platelet count 196 X10E3/UL 10*3/mm3 150-379 Lab Report: CBC With Differential/Platelet, Comp. Metabolic Panel (14), ... - Urinalysis ketones, urine, by test strip Negative Negative Encounters Date Encounter Provider Code Facility [id number] [employer] DIRECTOR Est Patient Exp Problem - 5[address]20 Cooper Macedo MD CPT-35863 [facility] Practice Procedures Code Procedure Name Date Entry Date Standard Description CPT-17929 Admin of Vaccine - Injection - 1 15:04:29 [employer] CPT-34647 Fluzone 0.5 ml (Influenza Vacc 3 years plus IM) 15:04:29 [employer] CPT-76580 New Patient Well Exam (40 - 64 Yrs) - [address] 15:08:47 [employer]
[2018-05-20 12:50] VITALS: BP 113/88
== END | disposition home or self-care (01) ==
LOC: OR 08:02
PROVIDERS: ATTEND Internal Medicine Gastroenterology
DX: Z12.11 Encounter for screening for malignant neoplasm of colon (principal); R07.9 Chest pain, unspecified; Z80.0 Family history of malignant neoplasm of digestive organs; Z79.01 Long term (current) use of anticoagulants; Z79.82 Long term (current) use of aspirin; I48.91 Unspecified atrial fibrillation; I11.0 Hypertensive heart disease with heart failure; I50.9 Heart failure, unspecified; E78.5 Hyperlipidemia, unspecified; K57.90 Diverticulosis of intestine, part unspecified, without perforation or abscess without bleeding; K64.8 Other hemorrhoids; K21.0 Gastro-esophageal reflux disease with esophagitis; K44.9 Diaphragmatic hernia without obstruction or gangrene; K29.70 Gastritis, unspecified, without bleeding; K29.80 Duodenitis without bleeding; Z01.810 Encounter for preprocedural cardiovascular examination; Z01.812 Encounter for preprocedural laboratory examination
CPT/HCPCS: 36415; 43239; 45378; 85025; 93005; J2250